=== PATIENT | female | born 1970 | race Two or more races ===

== ENCOUNTER 2024-05-18 06:54 | Day surgery (SDC) | payer BC, SELFPAY ==
[2024-05-14 08:43] LABS: Hematocrit 41.8 % (37.0-47.0); Mean Corp Hgb Conc. 33.5 g/dL (33.0-37.0); Mean Corpuscular Hgb 31.6 pg (27.0-31.0); Mean Corpuscular Volume 94.4 fL (81.0-99.0); Mean Platelet Volume 10.7 fL (7.4-10.4); Platelet Count 210 10^3/uL (130-400); Red Blood Cell Count 4.43 10^6/uL (4.20-5.40); Red Cell Dist. Width 12.4 % (11.5-14.5); White Blood Cell Count 5.4 10^3/uL (4.8-10.8)
[2024-05-14 08:47] LABS: APTT 29.8 Sec (23.4-35.0); INR 0.91; PT 12.6 Sec (11.4-14.6)
[2024-05-14 09:12] LABS: ALT (SGPT) 37 U/L (0-35); AST (SGOT) 26 U/L (14-36); Albumin 4.7 g/dl (3.5-5.0); Alkaline Phosphatase 64 U/L (38-126); Blood Urea Nitrogen 15 mg/dl (7-17); Calcium 11.2 mg/dl (8.4-10.2); Carbon Dioxide 25 mmol/L (22-30); Chloride 106 mmol/L (98-107); Glucose 124 mg/dl (70-99); Potassium 4.3 mmol/L (3.5-5.1); Sodium 143 mmol/L (135-145); Total Bilirubin 0.3 mg/dl (0.2-1.3); Total Protein 7.4 g/dl (6.3-8.2); eGFR > 60.00
[2024-05-14 10:37] VITALS: BMI 30.3
[2024-05-18 11:46] VITALS: BP 119/103; BMI 30.3
[2024-05-18] MEDS: TYLENOL 1000 MG PO (11:55)
[2024-05-18] MEDS: HEPARIN 5000 UNITS SC (11:55)
[2024-05-18] MEDS: NEURONTIN 300 MG PO (11:55)
[2024-05-18 13:19] LABS: Turbo PTH 406.5 pg/ml (13.6-85.8)
--- NOTE | 2024-05-18 13:47 | OR.RPT ---
Operative Report
Operative Report
Date of Operation: May 18, 2024
Preoperative Diagnosis: �Hyperparathyroidism - E210
Postoperative Diagnosis: Same
Surgeon: Juan Coates M.D.
Operation: Minimally Invasive Right Inferior Parathyroidectomy - 58958
Anesthesia: GET
Estimated Blood Loss: 2 cc
Drains: None
Specimen: �Right neck nodule, rule out parathyroid adenoma
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
Complications: �None
Procedure:
The patient was taken to the operating room and placed in the usual supine position. After adequate general endotracheal anesthesia was established, the patient's neck was extended, prepped, and draped in the typical sterile fashion. A 4 cm
transcervical incision was made two fingerbreadths above the sternal notch. The skin incision was made with the #15 blade, and this was taken through the skin into the subcutaneous tissue. The underlying platysma muscle was divided, and subplatysmal
flaps were created superiorly to the thyroid cartilage and inferiorly to the sternal notch. Strap muscles were identified and at the midline.
Attention was turned to the patient's right side of the neck. The right thyroid lobe was mobilized medially. During this process, the right recurrent laryngeal nerve was identified and preserved throughout the surgery. The right neck nodule was
identified and noted to be enlarged, excised, and sent to the pathology department, which showed a hypercellular parathyroid gland. The intraoperative PTH levels normalized.
After obtaining adequate hemostasis, the strap muscles were reapproximated with #3-0 Vicryl in a running fashion. The platysma muscle was reapproximated with #3-0 Vicryl in an interrupted fashion, and the skin was approximated with #4-0 Monocryl in
a running subcuticular fashion. The Steri-Strips and sterile dressings were placed. The patient tolerated the procedure well. The final instrument, needle, and sponge counts were correct. The patient was extubated and transferred to the PACU.
[2024-05-18 14:04] LABS: Turbo PTH 42.2 pg/ml (13.6-85.8)
[2024-05-18 14:20] VITALS: BP 119/103; BP 127/71
[2024-05-18 14:30] VITALS: BP 136/68
[2024-05-18 15:10] VITALS: BP 132/80
[2024-05-18 15:30] VITALS: BP 132/77
[2024-05-18 16:00] VITALS: BP 118/73
== END 2024-05-18 16:15 | disposition home or self-care (01) ==
LOC: SDS 06:54
PROVIDERS: ATTENDING PHYSICIAN Surgery; FAMILY PHYSICIAN Internal Medicine
DX: E21.3 Hyperparathyroidism, unspecified (principal)
CPT/HCPCS: 60500; 88305; 88332; 36415; 80053; 83970; 85027; 85610; 85730; 88331; 93005; C1776